=== PATIENT | female | born 1975 | race Caucasian/White ===

== ENCOUNTER 2018-06-02 22:38 | Emergency (ER) | payer OTHER ==
[~2018-06-02] VITALS: Ht 172.7 cm; Wt 82.6 kg
[~2018-06-02 22:38] MED LIST: AMOXICILLIN875 MG PO; CELEXA 20 MG TA20 M1; ESTRACE1 MG; FLEXERIL; FLEXERIL PO; IBUPROFEN 800800 M1 PO; MEDROLDOSEPACK PO; NORCO 5-325 TA1 EACH PO; PREDNISONE 10 M10 MG PO; PROZAC 20 MG20 M1; VENTOLIN17 GM INH
[2018-06-02] MEDS ORDERED: ADDERALL 15 MG15 MG (22:58)
[2018-06-02 23:28] LABS: ABSOLUTE BASOPHILS 0.1 thou/uL (0.0-0.2); ABSOLUTE EOSINOPHILS 0.3 thou/uL (0.0-0.7); ABSOLUTE LYMPHOCYTES 1.8 thou/uL (0.8-5.3); ABSOLUTE MONOCYTES 0.6 thou/uL (0.0-1.2); ABSOLUTE NEUTROPHILS 4.2 thou/uL (1.6-8.1); EOSINOPHILS 4.5 %; HEMATOCRIT 39.3 % (37.0-47.0); HEMOGLOBIN 13.2 gm/dL (12.0-15.0); LYMPHOCYTES 25.2 %; MCH 31.3 pg (26.0-34.0); MCHC 33.6 g/dL (28.0-37.0); MCV 93.1 fL (80.0-100.0); MONOCYTES 8.7 %; NUCLEATED RBCS 0 /100WBC; PLATELET COUNT* 242 thou/uL (150-400); POLYS 60.6 %; RBC 4.22 mil/uL (4.20-5.00); RDW-CV 13.6 % (10.5-14.5)
[2018-06-02 23:33] LABS: ANION GAP 7 mmol/L (7-16); BUN 16 mg/dL (7-18); CALCIUM 9.2 mg/dL (8.5-10.1); CHLORIDE 103 mmol/L (98-107); CO2 31 mmol/L (21-32); CREATININE 0.8 mg/dL (0.6-1.3); GLUCOSE 82 mg/dL (70-99); POTASSIUM 3.6 mmol/L (3.5-5.1); SODIUM 141 mmol/L (136-145)
[2018-06-02 23:34] LABS: APTT 25.1 Seconds (25.0-31.3); PROTIME 10.3 Seconds (9.20-11.50)
[2018-06-02 23:40] LABS: ALKALINE PHOSPHATASE 58 U/L (46-116); LIPASE 162 U/L (73-393); SGOT 20 U/L (15-37); SGPT 35 U/L (30-65); TOTAL BILIRUBIN 0.2 mg/dL (<0.1-1.0); TOTAL PROTEIN 7.4 g/dL (6.4-8.2); TROPONIN-I LEVEL <0.06 ng/mL (<0.06)
[2018-06-03 01:20] VITALS: BP 104/60
--- NOTE | 2018-06-03 16:58 | EKG ---
[place] [address] ELECTROCARDIOGRAM REPORT Name: NANDARRYLMckenna MIKE [id number] Admission: 06/02/18 Attend Phys: Discharge: 06/03/18 Date of : 75 Report #: [id number] THIS REPORT FOR: //name// [facility] ED Test Date: 2018-06-02 Test Time: 23:57:36 Pat Name: DARRYL MONTANA Department: Room: Gender: F Personal Care Service Provider: LINK : 1975 Requested By: Gwyn Langford Order Number: [id number] MD: Ishan Bourgeois Measurements Intervals [place] Rate: 62 P: 31 DC: 156 QRS: 3 QRSD: 104 T: -3 QT: 431 QTc: 438 Interpretive Statements Sinus rhythm Low voltage, precordial leads Borderline T abnormalities, inferior leads No previous ECG available for comparison Electronically Signed On 06-03-2018 16:58:25 [employer] by Ishan Bourgeois [email or web address] <ELECTRONICALLY SIGNED> By: Ishan Bourgeois MD, [facility] 06/03/18 [id number] [id number] Ishan Bourgeois MD, FACC /EPI
== END 2018-06-03 01:21 | disposition home or self-care (01) ==
LOC: M.ERS 22:38
PROVIDERS: Family Medicine
DX: S00.03XA Contusion of scalp, initial encounter (principal); R55 Syncope and collapse; R11.2 Nausea with vomiting, unspecified; F32.9 Major depressive disorder, single episode, unspecified; N80.9 Endometriosis, unspecified; Z90.710 Acquired absence of both cervix and uterus; Z87.891 Personal history of nicotine dependence; W22.8XXA Striking against or struck by other objects, initial encounter; Y93.89 Activity, other specified; Y92.89 Other specified places as the place of occurrence of the external cause; Y99.8 Other external cause status